=== PATIENT | female | born 1990 | race Caucasian/White ===

== ENCOUNTER 2025-03-26 13:57 | Emergency (ER) | payer MEDICAID, SELFPAY ==
[2025-03-26] VITALS (8 sets, daily range): BP systolic 128–142; BP diastolic 59–98; PULSE 76–98; TEMP 37; O2SAT 97–100; BMI 40.3
--- NOTE | 2025-03-26 14:02 | XR_ITS ---
The [address] [address] Patient Name: JEANNE LAYNE MRN: [id number] date: 1990 Sex: F Assigned Patient Location: ED.MAIN Current Patient Location: ED.MAIN Accession/Order Number: [id number] Exam Date: 03/26/2025 14:30 Report Date: 03/26/2025 14:50 At the request of: AMARA VALERA MD Procedure: XR chest 1V Single view chest: CLINICAL HISTORY: near syncope COMPARISON: None FINDINGS: The heart is normal in size. The lungs are clear. The pulmonary vasculature is normal. Mediastinum and hilar regions are unremarkable. No pleural effusions are seen. Visualized bones are intact. XR/XR chest 1V IMPRESSION: NEGATIVE CHEST. Impression dictated by: Cha Adams Jr.ORoberto 03/26/2025 2:50 PM Dictation Location: [place] [address] Electronically authenticated by: [id number] Y Date: 03/26/2025 14:50
--- NOTE | 2025-03-26 14:02 | ECG_ITS ---
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
--- OUTSIDE RECORDS SUMMARY | 2025-03-26 14:12 | XMS_ITS | Clinical Summary ---
Author Organization [employer] Address [id number] [address] [place] [address] Care Team Providers Care Medical Receptionist Medical Assistant Name Role Phone No Pcp, No Pcp Primary Care Provider Unavailabl e Allergies No known active allergies Medications ondansetron ODT (ZOFRAN-ODT) 4 mg disintegrating tablet Dissolve 1 tablet (4 mg total) on tongue every 8 (eight) hours as needed for nausea for up to 10 doses. 10 tablet 07/03/20 19 Active Additional Information Patient not taking.Reported on 12/01/2024 Active Problems Problem Noted Date Diagnosed Date Hunger pain, initial encounter 03/09/2018 Family history of hypertrophic cardiomyopathy Palpitation 03/09/2018 Vasovagal syncope 03/09/2018 Family History Medical History Relation Name Comments Hypertrophic cardiomyopathy Cousin paternal Hypertrophic cardiomyopathy Father Asthma Maternal Grandmother Hypertrophic cardiomyopathy Paternal Aunt Hypertrophic cardiomyopathy Paternal Uncle Arrhythmia Neg Hx Clotting disorder Neg Hx Diabetes Neg Hx Heart attack Neg Hx Heart defect Neg Hx High Cholesterol Neg Hx Hypertension Neg Hx Seizures Neg Hx Stroke Neg Hx Sudden Neg Hx Thyroid Issues Neg Hx Relation Name Status Comments Cousin paternal Alive Father Maternal Grandmother Paternal Aunt Paternal Grandfather Paternal Uncle Social History Tobacco Use Types Packs/Day Years Used Date Smoking Tobacco: Never Smokeless Tobacco: Never Alcohol Use Standard Drinks/Week Comments No 0 (1 standard drink = 0.6 oz pur e alcohol) Childcare Answer Date Recorded Childcare Unknown 01/07/2019 Employment Answer Date Recorded Employment Unknown 01/07/2019 Hunger Screening Answer Date Recorded Within the past 12 months we worried whether our food would run out before we got money to buy more. Never True 12/01/2024 Within the past 12 months th e food we bought just didn't last and we didn't have money to get more. Never True 12/01/2024 Purpose - Life Answer Date Recorded Purpose and direction in life Unknown Comments No Sex and Gender Information Value Date Recorded Sex Assigned at Not on file Legal Sex Female 11:43 AM EDT Gender Identity Not on file Sexual Orientation Not on file Last Filed Vital Signs Vital Sign Reading Time Taken Comments Blood Pressure 128/89 12/01/2024 2:30 PM EDT Pulse 95 12/01/2024 2:30 PM EDT Temperature 36.6 C (97.9 F) 12/01/2024 11:31 AM EDT Respiratory Rate 18 12/01/2024 2:30 PM EDT Oxygen Saturation 100% 12/01/2024 2:30 PM EDT Inhaled Oxygen Concentration - - Weight 113.4 kg (250 lb) 12/01/2024 11:31 AM EDT Height 162.6 cm (5' 4 ) 12/01/2024 11:31 AM EDT Body Mass Index 42.91 12/01/2024 11:31 AM EDT Plan of Treatment Health Maintenance Due Date Last Done Comments Depression Screening 2002 Adult BMI Follow Up Plan 2008 DTaP,Tdap and Td Vaccines (6 - Td or Tdap) 11/09/2017 11/10/2007, 02/15/1992, 08/04/1991, Additional history exists Influenza Vaccine 03/29/2025 04/25/2011 Adult BMI Screening 12/01/2025 12/01/2024 Tobacco Screening 12/01/2025 12/01/2024 Medical Devices Not on file Insurance [facility] MEDICAID Care Teams Medical Receptionist Medical Assistant Relationship Specialty Start Date End Date No Pcp, No Pcp [place] [id number] PCP - General Family Medicine 12/01/24
[2025-03-26] MEDS: 0.9 % SODIUM CHLORIDE 1,000 ML 999 ML IV (14:15)
[2025-03-26 14:29] LABS: Hematocrit 39.6 % (36.0-48.0); Hemoglobin 13.7 g/dL (12.0-16.0); Immature Granulocytes Abs Auto 0.01 10^3/uL (0.00-0.03); Immature Granulocytes Pct Auto 0.2 % (0.0-0.5); Lymphocytes Absolute Auto 2.1 10^3/uL (1.2-3.8); Mean Corpuscular HGB Conc 34.6 g/dL (29.9-35.2); Mean Corpuscular Hemoglobin 30.6 pg (26.7-34.0); Mean Corpuscular Volume 88.6 fL (81.0-99.0); Platelet Count 190 10^3/uL (150-450); Red Blood Count 4.47 10^6/uL (4.20-5.40); White Blood Count 5.5 10^3/uL (4.0-11.0)
[2025-03-26 14:35] LABS: Glucose Urine UA NEGATIVE (NEGATIVE)
[2025-03-26 14:41] LABS: Cast Seen? NONE SEEN #/LPF (NONE SEEN); Crystals Seen? None Seen #/HPF (None Seen); Urine Culture Indicated NO
[2025-03-26 14:49] LABS: Anion Gap 11.7; Blood Urea Nitrogen 8.0 mg/dL (7.0-18.0); Calcium 9.1 mg/dL (8.5-10.1); Carbon Dioxide 25.9 mmol/L (21.0-32.0); Chloride 105 mmol/L (98-107); Estimated GFR (African America >60 (>=60 mL/min/1.73m^2); Estimated GFR (Non-African Ame >60 (>=60 mL/min/1.73m^2); Glucose 89 mg/dL (74-106); Potassium 3.6 mmol/L (3.5-5.1); Sodium 139 mmol/L (136-145)
--- NOTE | 2025-03-26 15:37 | ED_ITS ---
HPI HPI - General Adult General Chief complaint: Dizziness Stated complaint: DIZZINESS Time Seen by Provider: 03/26/25 13:59 Source: patient Mode of arrival: ambulance Limitations: no limitations History of Present Illness HPI narrative: 34-year-old female to the emergency department with chief complaint of near syncopal episode that occurred while at work. 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 She was nearing the end of her shift. She began to feel lightheaded and dizzy. She did not pass out. She denies any chest pain or shortness of breath. No recent illness. She did vomit once. Related Data Allergies Allergy/AdvReac Type Severity Reaction Status Date / Time No Known Drug Allergies Allergy Verified 03/26/25 14:01 Review of Systems ROS Status of ROS 10 or more systems reviewed and unremark able except as noted in history and below PFSH PFSH Social History Little interest or pleasure in doing things: not at all Feeling down, depressed, or hopeless: not at all Exam Narrative Exam Narrative: VITALS: I have reviewed the triage vital signs. GENERAL: Well developed, well appearing adult in no acute distress. NEURO: Alert and oriented. Moves all extremities. Face is symmetric and expressive. EYES: PERRL. No scleral icterus or conjunctival injection. No discharge. HENT: Normocephalic, atraumatic. Hearing is grossly intact. Nares grossly patent and without discharge. Mucous membranes moist. NECK: No JVD. Patient moves neck without restriction. CARDIO: Rhythm regular. Normal rate. No murmur, rub, or gallop. Pulses equal bilaterally in the upper and lower extremity. No lower extremity edema. PULM: Lungs clear to auscultation in all ordoñez. No wheezes, rales, or rhonchi. No conversational dyspnea. No splinting, stridor, or accessory muscle use. GI/: Abdomen is soft and non-tender. Normoactive bowel sounds. EXTREMITIES: Symmetric muscle bulk. No joint swelling. No clubbing, cyanosis, or deformity. SKIN: Warm and dry. Normal turgor. No rash or lesions appreciated. PSYCH: Mood, affect, and interaction is appropriate to the setting. Constitutional Vital Signs, click to edit/add: Last Vital Signs Temp 98.6 F 03/26/25 13:58 Pulse 84 03/26/25 15:30 Resp 16 08/29/25 15:30 BP 128/59 03/26/25 15:20 Pulse Ox 100 03/26/25 15:20 O2 Del Method Room Air 03/26/25 13:58 Course Vital Signs Vital signs: Vital Signs Temperature 98.6 F 03/26/25 13:58 Pulse Rate 82 03/26/25 13:58 Respiratory Rate 18 03/26/25 13:58 Blood Pressure 142/84 H 03/26/25 13:58 Pulse Oximetry 97 03/26/25 13:58 Oxygen Delivery Method Room Air 03/26/25 13:58 Temperature 98.6 F 03/26/25 13:58 Pulse Rate 84 03/26/25 15:30 Respiratory Rate 16 03/26/25 15:30 Blood Pressure 128/59 03/26/25 15:20 Pulse Oximetry 100 03/26/25 15:20 Oxygen Delivery Method Room Air 03/26/25 13:58 Medical Decision Making MDM Narrative Medical decision making narrative: 34-year-old female to the emergency department with chief complaint of near syncopal episode while at work. Vital stable, the patient is afebrile. Her exam is unremarkable. Cardiac workup is initiated. PERC negative effectively ruling out VTE in this low risk patient. Fluids are ordered. Patient agrees with this plan. Lab work without major abnormality. Her troponin is low. EKG without evidence of ischemia or arrhythmia. Chest x-ray without acute findings. She had no events on telemetry monitoring during her ED stay. Reassuring workup was discussed with the patient. She feels improved. She will follow-up with her assistant community director in the outpatient setting. Return precautions were discussed. All questions were answered. The patient was discharged home. Medical Records Medical records reviewed: Yes I reviewed the patient's medical records Lab Data Lab results reviewed: Yes I reviewed the patient's lab results Labs: Lab Results 03/26/25 03/26/25 Range/Units 14:08 14:13 WBC 5.5 (4.0-11.0) 10^3/uL RBC 4.47 (4.20-5.40) 10^6/uL Hgb 13.7 (12.0-16.0) g/dL Hct 39.6 (36.0-48.0) % MCV 88.6 (81.0-99.0) fL MCH 30.6 (26.7-34.0) pg MCHC 34.6 (29.9-35.2) g/dL RDW 12.9 (11.0-15.0) % Plt Count 190 (150-450) 10^3/uL MPV 11.2 (9.5-13.5) fL Neut % (Auto) 51.3 (43.0-75.0) % Lymph % (Auto) 38.7 (20.5-60.0) % [place] % (Auto) 7.8 (1.7-12.0) % Eos % (Auto) 1.5 (0.9-7.0) % Baso % (Auto) 0.5 (0.2-2.0) % Neut # (Auto) 2.8 (1.4-6.5) 10^3/uL Lymph # (Auto) 2.1 (1.2-3.8) 10^3/uL [place] # (Auto) 0.4 (0.3-0.8) 10^3/uL Eos # (Auto) 0.1 (0.0-0.7) 10^3/uL Baso # (Auto) 0.0 (0.0-0.1) 10^3/uL Abs Immat Gran (auto) 0.01 (0.00-0.03) 10^3/uL Imm/Tot Granulo (auto) 0.2 (0.0-0.5) % Sodium 139 (136-145) mmol/L Potassium 3.6 (3.5-5.1) mmol/L Chloride 105 (98-107) mmol/L Carbon Dioxide 25.9 (21.0-32.0) mmol/L Anion Gap 11.7 BUN 8.0 (7.0-18.0) mg/dL Creatinine 0.75 (0.55-1.02) mg/dL Est GFR ( Amer) >60 (>=60 mL/min/1.73m^2) Est GFR (Non-Af Amer) >60 (>=60 mL/min/1.73m^2) BUN/Creatinine Ratio 10.7 Glucose 89 (74-106) mg/dL Calcium 9.1 (8.5-10.1) mg/dL Troponin I High Sens 5.3 (4.0-51.3) pg/mL Urine Color Lt. yellow (YELLOW) Urine Clarity Clear (CLEAR) Urine pH 6.5 (5.0-9.0) Ur Specific [place] 1.010 (1.005-1.025) Urine Protein Negative (NEG/TRACE) mg/dL Urine Glucose (UA) Negative (NEGATIVE) mg/dL Urine Ketones Negative (NEGATIVE) mg/dL Urine Occult Blood Negative (NEGATIVE) Urine Nitrite Negative (NEGATIVE) Urine Bilirubin Negative (NEGATIVE) Urine Urobilinogen 0.2 (0.2-1.0) EU/dL Ur Leukocyte Esterase Negative (NEGATIVE) Urine RBC 0-2 (0-2) #/HPF Urine WBC None seen (NONE SEEN) #/HPF Ur Squamous Epith Cells Rare (NONE/RARE) #/LPF Urine Crystals None seen (None Seen) #/HPF Urine Bacteria Trace A (NONE SEEN) #/HPF Urine Casts None seen (NONE SEEN) #/LPF Urine Mucus None seen (NONE SEEN) Ur Culture Indicated? No Imaging Data Chest x-ray: Attestation: I have reviewed the pertinent imaging results. Radiologist's impression: ITS Impressions Chest X-Ray 03/26/25 14:02 IMPRESSION: NEGATIVE CHEST. Impression dictated by: Bud Alexander Jr., D.O. 03/26/2025 2:50 PM Dictation Location: [place] [address] Electronically authenticated by: [id number] Y Date: 03/26/2025 14:50 ECG Data Attestation: I personally reviewed and interpreted this ECG as follows: (Normal sinus rhythm at a rate of 85. Normal QTc of 413. No acute ischemic pattern.) Discharge Plan Discharge Chief Complaint: Dizziness Clinical Impression: Near syncope Patient Disposition: Home, Self-Care Time of Disposition Decision: 15:36 Condition: Good Mode of Transportation: Private Vehicle Print Language: Armenian Instructions: Near Syncope (ED) Additional Instructions: Call the office of your primary care doctor to arrange for follow-up within the above-stated timeframe. Your ED visit was focused on your acute issue and does not replace primary care. You should review your labs, imaging, and diagnoses from this ED visit with your primary care physician. There may be non-emergent/ incidental findings that need further evaluation. You should review your vital signs including blood pressure with your PCP. If you were prescribed medications you should discuss possible side-effects and drug interactions with your pharmacist. Call 911 or go to the nearest Emergency Department if you develop any new or worsening symptoms. Seek immediate medical attention if you develop: worsening chest pain, new chest pain, nausea, vomiting, weakness, numbness, tingling, excessive sweating, shortness of breath, difficulty breathing, loss of motion in your arms or legs, or any new or worsening symptoms. Referrals: Physician,Non-Staff, MD [Primary Care Provider] - 1 week Referral Note: Call the office of your assistant community director to obtain repeat evaluation
== END 2025-03-26 15:44 | disposition home or self-care (01) ==
PROVIDERS: Emergency Provider Student in an Organized Health Care Education/Training Program
DX: R55 Syncope and collapse (principal)
CPT/HCPCS: 36415; 71045; 80048; 81001; 84484; 84703; 85025; 93005; 96360; 99285